=== PATIENT | male | born 1980 | race Caucasian/White ===

== ENCOUNTER 2022-08-21 09:32 | Emergency (ER) | payer OTHER ==
[2022-08-21 09:41] VITALS: BP 124/92; PULSE 63; RESP 18; TEMP 97.7; BMI 23.1
[2022-08-21] MEDS ORDERED: ACETAMINOPHEN 325 MG TABLET (FP) PO ONE (09:52)
[2022-08-21] MEDS ORDERED: DIPHTH,PERTUSS(ACELL),TET 0.5 ML DISP.SYRIN IM ONE ×2 (09:52→10:08)
[2022-08-21] MEDS ORDERED: ACETAMINOPHEN 325 MG TABLET (FP) ONE (10:08)
== END 2022-08-21 11:10 | disposition home or self-care (01) ==
LOC: FER 09:32
PROC: 0HQGXZZ Repair Left Hand Skin, External Approach (ICD-10-PCS; principal; 2022-08-21)
PROC: 3E0234Z Introduction of Serum, Toxoid and Vaccine into Muscle, Percutaneous Approach (ICD-10-PCS; 2022-08-21)
DX: S61.217A Laceration without foreign body of left little finger without damage to nail, initial encounter (principal); W26.8XXA Contact with other sharp object(s), not elsewhere classified, initial encounter
CPT/HCPCS: 73130-TC-LT-FY; 90471; 90715; 99284-25